=== PATIENT | male | born 1980 | race Caucasian/White ===

== ENCOUNTER 2017-03-01 23:46 | Emergency (ER) | payer OTHER ==
[2017-03-02 01:18] LABS: BASOPHIL 0.5 % (0-2); EOSINOPHIL 1.6 % (0-5); HCT 42.9 % (42.0-52.0); HGB 14.2 g/dl (13.2-18.0); LYMPHOCYTE 16.9 % (15-48); MCH 29.3 pg (25.0-31.0); MCHC 33.1 g/dL (32.0-36.0); MCV 88.5 fL (78.0-100.0); MONOCYTE 11.4 % (0-12); MPV 9.5 fL (6.0-9.5); NEUTROPHIL 69.6 % (41-80); PLT 337 K/uL (150-400); RBC 4.85 M/uL (4.70-6.00); RDW 12.3 % (11.5-14.0)
[2017-03-02 01:50] LABS: BILIRUBIN - TOTAL 0.2 mg/dL (0.1-1.0); CREATININE 0.9 mg/dL (0.7-1.2); GLOBULIN (CALCULATION) 1.9 g/dL (2.2-4.2); POTASSIUM 4.5 mmol/L (3.5-5.1); TOTAL PROTEIN 5.9 g/dL (6.4-8.3); WBC 14.5 K/uL (4.0-10.5)
== END 2017-03-02 03:35 | disposition home or self-care (01) ==
LOC: FER 23:46
PROVIDERS: Emergency Medicine
DX: L03.114 Cellulitis of left upper limb (principal)
CPT/HCPCS: 36415; 80053; 85025; 85379; 96372; J1170; J2060; J2270